=== PATIENT | male | born 1975 | race Caucasian/White ===

== ENCOUNTER 2017-09-25 19:59 | Inpatient (IN) | payer MEDICAID ==
[~2017-09-25] VITALS: Ht 165.1 cm; Wt 128.4 kg
[~2017-09-25 19:59] MED LIST: ALD25 PO; COR6 PO; ECO81 PO; GLU5 PO; SIMVASTATIN10 M1 PO; ZES10 PO
[2017-09-25 20:07] VITALS: Ht 165.1 cm; Wt 128.4 kg
[2017-09-25] MEDS ORDERED: LOSARTAN POTAS100 M1 PO (21:59)
[2017-09-25] MEDS ORDERED: LASIX40 MG PO (21:59)
[2017-09-25 23:03] LABS: microscopic required? YES; urine erythrocyte TRACE (NEGATIVE)
[2017-09-25 23:04] LABS: BASOPHIL % 0.5 % (0-2); PLATELET COUNT 173 x10^3mcL (130-400)
[2017-09-25 23:16] LABS: CALCIUM 8.4 mg/dL (8.5-10.1); CARBON DIOXIDE 31.9 mmol/L (21-32); CREATININE SERUM 1.5 mg/dL (0.7-1.3); POTASSIUM SERUM 3.9 mmol/L (3.5-5.1)
[2017-09-25 23:22] LABS: BILIRUBIN TOTAL 0.91 mg/dL (0.20-1.00)
[2017-09-25 23:23] LABS: ALBUMIN 2.6 g/dL (3.4-5.0); CHOLESTEROL/HDL RATIO 3.4
[2017-09-25 23:55] LABS: T3 TOTAL 1.04 ng/mL
[2017-09-26] VITALS (10 sets, daily range): BP systolic 127–151; BP diastolic 90–111
[2017-09-26 00:05] LABS: FREE T4 1.08 ng/dL (0.76-1.46); FREE THYROXINE INDEX 2.3 ug/dL (1.4-4.5); T4(THYROXINE) 6.5 ug/dL (4.7-13.3)
[2017-09-26 02:14] LABS: MAGNESIUM 1.8 mg/dL (1.8-2.4); PHOSPHOROUS 3.8 mg/dL (2.5-4.9)
[2017-09-26 04:15] LABS: AMPHETAMINE QUAL UR NONE DETECTED (See below)
[2017-09-26 06:17] LABS: CARBON DIOXIDE 32.1 mmol/L (21-32); CREATININE SERUM 1.4 mg/dL (0.7-1.3); POTASSIUM SERUM 3.4 mmol/L (3.5-5.1)
[2017-09-26 06:19] LABS: BASOPHIL % 0.4 % (0-2); PLATELET COUNT 174 x10^3mcL (130-400)
[2017-09-26 06:21] LABS: RED CELL DISTRIBUTION WIDTH 16.8 % (11.5-14.5)
[2017-09-27 06:04] VITALS: BP 129/97
[2017-09-27 07:45] LABS: BASOPHIL % 0.5 % (0-2); PLATELET COUNT 171 x10^3mcL (130-400); RED CELL DISTRIBUTION WIDTH 16.5 % (11.5-14.5)
[2017-09-27 07:54] LABS: CALCIUM 8.8 mg/dL (8.5-10.1); CARBON DIOXIDE 31.2 mmol/L (21-32); CHLORIDE SERUM 103 mmol/L (98-107); CREATININE SERUM 1.2 mg/dL (0.7-1.3); GFR1 > 60 mL/min; GLUCOSE SERUM 128 mg/dL (74-106); MAGNESIUM 1.6 mg/dL (1.8-2.4); PHOSPHOROUS 4.7 mg/dL (2.5-4.9); POTASSIUM SERUM 3.4 mmol/L (3.5-5.1); SODIUM SERUM 140 mmol/L (136-145)
[2017-09-27 08:21] VITALS: BP 135/111
[2017-09-27] MEDS ORDERED: GLU5 PO (09:44)
[2017-09-27] MEDS ORDERED: COZ50 PO (09:46)
[2017-09-27] MEDS ORDERED: CARVEDILOL12.5 M1 PO (09:50)
[2017-09-27] MEDS ORDERED: LASIX40 MG PO (09:54)
[2017-09-27] MEDS ORDERED: PRA20 PO (09:57)
[2017-09-27 11:19] VITALS: BP 137/98
[2017-09-27 17:51] VITALS: BP 137/98
[2017-09-27 18:35] VITALS: BP 149/107
== END 2017-09-27 19:10 | disposition home or self-care (01) | DRG 194 ==
LOC: ED 19:59 → DU 09-26 00:17
PROVIDERS: Family Medicine; Specialist
DX: I11.0 Hypertensive heart disease with heart failure (principal); N17.0 Acute kidney failure with tubular necrosis; E43 Unspecified severe protein-calorie malnutrition; I27.20 Pulmonary hypertension, unspecified; E11.65 Type 2 diabetes mellitus with hyperglycemia; Z68.42 Body mass index [BMI] 45.0-49.9, adult; I50.43 Acute on chronic combined systolic (congestive) and diastolic (congestive) heart failure; I42.0 Dilated cardiomyopathy; I42.6 Alcoholic cardiomyopathy; I16.1 Hypertensive emergency; I25.10 Atherosclerotic heart disease of native coronary artery without angina pectoris; R80.9 Proteinuria, unspecified; F14.21 Cocaine dependence, in remission; F10.11 Alcohol abuse, in remission; Z79.82 Long term (current) use of aspirin; Z79.4 Long term (current) use of insulin
CPT/HCPCS: 83880; 84439; C9113; J1644; J1940; J3490; J7030; Q0092

== ENCOUNTER 2018-04-20 08:03 | Inpatient (IN) | payer MEDICAID ==
[~2018-04-20] VITALS: Ht 165.1 cm; Wt 112.9 kg
[~2018-04-20 08:03] MED LIST changes: +CARVEDILOL12.5 M1 PO; +COZ50 PO; +LASIX40 MG PO; +LOSARTAN POTAS100 M1 PO; +PRA20 PO
[2018-04-20 08:08] VITALS: Ht 165.1 cm; Wt 112.9 kg
[2018-04-20 08:52] LABS: CALCIUM 8.7 mg/dL (8.5-10.1); CARBON DIOXIDE 29.4 mmol/L (21-32); CREATININE SERUM 1.6 mg/dL (0.7-1.3); POTASSIUM SERUM 3.7 mmol/L (3.5-5.1)
[2018-04-20 08:57] LABS: ALBUMIN 2.9 g/dL (3.4-5.0); BILIRUBIN TOTAL 0.4 mg/dL (0.20-1.00); CHOLESTEROL/HDL RATIO 3.1; TOTAL PROTEIN, SERUM 6.8 g/dL (6.4-8.2)
[2018-04-20 09:01] LABS: BASOPHIL % 0.5 % (0-2); PLATELET COUNT 175 x10^3mcL (130-400); RED CELL DISTRIBUTION WIDTH 14.2 % (11.5-14.5)
[2018-04-20 09:02] LABS: T3 TOTAL 0.94 ng/mL
[2018-04-20 09:04] LABS: FREE T4 0.82 ng/dL (0.76-1.46); T4(THYROXINE) 5.6 ug/dL (4.7-13.3)
[2018-04-20 10:25] LABS: UA SPECIFIC GRAVITY 1.025 (1.005-1.035); microscopic required? YES; urine erythrocyte TRACE (NEGATIVE)
[2018-04-20 10:26] LABS: AMPHETAMINE QUAL UR NONE DETECTED (See below)
[2018-04-20] MEDS ORDERED: COREG12.5 MG PO (13:07)
[2018-04-20] MEDS ORDERED: SIMVASTATIN10 M1 (13:09)
[2018-04-20] MEDS ORDERED: ASPIRIN ADULT L81 M5 (13:09)
[2018-04-20] MEDS ORDERED: LASIX40 MG (13:10)
[2018-04-20] MEDS ORDERED: GLIPIZIDE5 M2 (13:11)
[2018-04-20 16:06] VITALS: BP 147/114
[2018-04-20 19:28] VITALS: BP 151/90
[2018-04-21] VITALS (7 sets, daily range): BP systolic 132–163; BP diastolic 92–127
[2018-04-21 06:23] LABS: BASOPHIL % 0.5 % (0-2); PLATELET COUNT 158 x10^3mcL (130-400); RED CELL DISTRIBUTION WIDTH 13.8 % (11.5-14.5)
[2018-04-21 06:53] LABS: CALCIUM 8.7 mg/dL (8.5-10.1); CARBON DIOXIDE 27.6 mmol/L (21-32); CHLORIDE SERUM 106 mmol/L (98-107); CREATININE SERUM 1.1 mg/dL (0.7-1.3); GFR1 > 60 mL/min; GLUCOSE SERUM 166 mg/dL (74-106); MAGNESIUM 1.9 mg/dL (1.8-2.4); PHOSPHOROUS 3.3 mg/dL (2.5-4.9); POTASSIUM SERUM 3.6 mmol/L (3.5-5.1); SODIUM SERUM 142 mmol/L (136-145)
[2018-04-21 16:29] LABS: IRON 69 ug/dL (65-170); TOTAL IRON BINDING CAPACITY 377 ug/dL (250-450)
[2018-04-22 05:36] VITALS: BP 149/92
[2018-04-22 06:17] LABS: BASOPHIL % 0.3 % (0-2); PLATELET COUNT 177 x10^3mcL (130-400); RED CELL DISTRIBUTION WIDTH 14.1 % (11.5-14.5)
[2018-04-22 06:28] LABS: CARBON DIOXIDE 31.2 mmol/L (21-32); CREATININE SERUM 1.4 mg/dL (0.7-1.3); MAGNESIUM 2.2 mg/dL (1.8-2.4); PHOSPHOROUS 3.2 mg/dL (2.5-4.9); POTASSIUM SERUM 3.9 mmol/L (3.5-5.1)
[2018-04-22 09:00] VITALS: BP 110/71; BP 139/96
[2018-04-22 12:42] VITALS: BP 126/95
[2018-04-22 17:02] VITALS: BP 122/83
[2018-04-22 21:05] VITALS: BP 126/88
[2018-04-23 05:33] VITALS: BP 127/97
[2018-04-23 06:42] LABS: BASOPHIL % 0.4 % (0-2); PLATELET COUNT 180 x10^3mcL (130-400); RED CELL DISTRIBUTION WIDTH 14.2 % (11.5-14.5)
[2018-04-23 06:43] LABS: CALCIUM 9.2 mg/dL (8.5-10.1); CARBON DIOXIDE 31.4 mmol/L (21-32); CHLORIDE SERUM 104 mmol/L (98-107); CREATININE SERUM 1.3 mg/dL (0.7-1.3); GFR1 > 60 mL/min; GLUCOSE SERUM 103 mg/dL (74-106); POTASSIUM SERUM 4.5 mmol/L (3.5-5.1); SODIUM SERUM 142 mmol/L (136-145)
[2018-04-23 09:25] VITALS: BP 131/96
[2018-04-23 12:58] VITALS: BP 113/83
[2018-04-23 16:46] VITALS: BP 119/86
[2018-04-23 20:49] VITALS: BP 122/88
[2018-04-24 05:29] VITALS: BP 125/99
[2018-04-24 09:04] VITALS: BP 129/96
== END 2018-04-24 12:20 | disposition left against medical advice (07) | DRG 244 ==
LOC: ED 08:03 → DU 11:37
PROVIDERS: General Practice; Internal Medicine Gastroenterology; Pediatrics Pediatric Cardiology; Specialist; ADMIT Internal Medicine
DX: K57.92 Diverticulitis of intestine, part unspecified, without perforation or abscess without bleeding (principal); I50.43 Acute on chronic combined systolic (congestive) and diastolic (congestive) heart failure; E11.65 Type 2 diabetes mellitus with hyperglycemia; I42.9 Cardiomyopathy, unspecified; I11.0 Hypertensive heart disease with heart failure; I16.0 Hypertensive urgency; K59.00 Constipation, unspecified; F10.21 Alcohol dependence, in remission; E66.9 Obesity, unspecified; I25.2 Old myocardial infarction; Z79.84 Long term (current) use of oral hypoglycemic drugs; Z91.11 Patient's noncompliance with dietary regimen
CPT/HCPCS: 82962; 83880; 84439; 90658; C9113; G0480; J0360; J1885; J1940; J3490; Q0092